=== PATIENT | male | born 1995 | race American Indian/Alaskan Native ===

== ENCOUNTER 2017-12-24 07:47 | Emergency (ER) | payer OTHER ==
[2017-12-24] MEDS ORDERED: ASPIRIN PO ONE (08:02)
[2017-12-24 08:21] LABS: Hematocrit 46.9 % (35.5-45.6); Mean Corpuscular HGB Conc 34 % (32-34); Mean Corpuscular Hemoglobin 28 pg (28-32); Mean Corpuscular Volume 81 fl (84-94); Platelet Count 277 K/mm3 (140-440); Red Blood Count 5.81 M/mm3 (3.65-5.03); Red Cell Distribution Width 14.1 % (13.2-15.2)
[2017-12-24] MEDS ORDERED: LOPRESSOR PO ONE (08:40)
[2017-12-24 08:59] LABS: BUN/Creatinine Ratio 15; Blood Urea Nitrogen 9 mg/dL (9-20); Hemolysis Index 36
[2017-12-24 10:10] VITALS: BP 143/88
[2017-12-24 11:19] LABS: Basophils % (Manual) 0 % (0.0-1.8); Eosinophils % (Manual) 0 % (0.0-4.3); Total Cells Counted 100
[2017-12-24 11:20] LABS: Anisocytosis 1+; Platelet Estimate Consistent w Auto
--- NOTE | 2017-12-24 12:30 | Emergency Department Report ---
HPI - General Chief Complaint: Arrhythmia/Palpitations Time Seen by Provider: 12/24/17 08:40 - HPI HPI: 22-year-old -[place] male comes to the ED complaining of mainly chest pain, 3 out of 10, without radiation, no nausea, no vomiting. Patient does have a history of high blood pressure not on any current medication. Patient also complaining of palpitation, feeling like his heart beating fast after drinking energy drinks. Denies headache, denies focal weakness. Patient denies any alleviating factors for his symptoms. Drinking caffeinated drink is an exacerbating factor. ED Past Medical Hx - Past Medical History Previous Medical History?: No Additional medical history: Heart palpitations - Surgical History Past Surgical History?: No - Social History Smoking Status: Current Every Day Smoker Substance Use Type: Alcohol - Medications Home Medications: Home Medications Medication Instructions Recorded Confirmed Last Taken Type Hydrochlorothiazide 12.5 mg PO AC #30 tablet 12/24/17 Unknown Rx ED Review of Systems ROS: Stated complaint: CHEST PAIN Other details as noted in HPI Comment: All other systems reviewed and negative ENT: denies: ear pain, throat pain Respiratory: denies: cough, orthopnea Cardiovascular: chest pain, palpitations Gastrointestinal: denies: nausea, vomiting Musculoskeletal: denies: back pain Skin: denies: rash, lesions Physical Exam - Physical Exam Vital Signs: Vital Signs 12/24/17 12/24/17 12/24/17 07:58 08:27 08:49 Temperature 98.3 F Pulse Rate 96 H 99 H 88 Respiratory 20 16 Rate Blood Pressure 159/92 162/91 Blood Pressure 162/91 [Left] O2 Sat by Pulse 100 98 Oximetry 12/24/17 12/24/17 09:39 10:10 Temperature Pulse Rate 60 Respiratory 16 16 Rate Blood Pressure Blood Pressure 143/88 [Left] O2 Sat by Pulse 98 Oximetry Physical Exam: - Physical Exam Physical Exam: - General Limitations: No Limitations General appearance: alert, in no apparent distress, obese - Head Head exam: Present: atraumatic, normocephalic - Eye Eye exam: Present: normal appearance - ENT ENT exam: Present: mucous membranes moist - Neck Neck exam: Present: normal inspection - Respiratory Respiratory exam: Present: normal lung sounds bilaterally. Absent: respiratory distress - Cardiovascular Cardiovascular Exam: Present: normal rhythm, tachycardia. Absent: systolic murmur, diastolic murmur, rubs, gallop - GI/Abdominal GI/Abdominal exam: Present: soft, normal bowel sounds - Extremities Exam Extremities exam: Present: normal inspection - Back Exam Back exam: Present: normal inspection - Neurological Exam Neurological exam: Present: alert, oriented X3 - Psychiatric Psychiatric exam: normal affect and mood - Skin Skin exam: Present: warm, dry, intact, normal color. Absent: rash ED Course Vital Signs 12/24/17 12/24/17 12/24/17 07:58 08:27 08:49 Temperature 98.3 F Pulse Rate 96 H 99 H 88 Respiratory 20 16 Rate Blood Pressure 159/92 162/91 Blood Pressure 162/91 [Left] O2 Sat by Pulse 100 98 Oximetry 12/24/17 12/24/17 09:39 10:10 Temperature Pulse Rate 60 Respiratory 16 16 Rate Blood Pressure Blood Pressure 143/88 [Left] O2 Sat by Pulse 98 Oximetry - Reevaluation(s) Reevaluation #1: 12/24/17 12:27 Nino given Lopressor and in ER, palpitations subsided, feels better, wants to go home. ED Medical Decision Making - Lab Data Result diagrams: 12/24/17 08:07 12/24/17 08:07 Critical care attestation.: If time is entered above; I have spent that time in minutes in the direct care of this critically ill patient, excluding procedure time. ED Disposition Clinical Impression: Palpitations Hypertension Qualifiers: Hypertension type: essential hypertension Qualified Code(s): I10 - Essential ( primary) hypertension Disposition: DC-01 TO HOME OR SELFCARE Is pt being admited?: No Does the pt Need Aspirin: No Condition: Stable Instructions: Hypertension (ED) Prescriptions: Hydrochlorothiazide 12.5 mg PO AC #30 tablet Referrals: PRIMARY CARE, [Primary Care Provider] - 3-5 Days
== END 2017-12-24 12:40 | disposition home or self-care (01) ==
LOC: ED 07:47
DX: R00.2 Palpitations (principal); I10 Essential (primary) hypertension; F17.200 Nicotine dependence, unspecified, uncomplicated; Z91.018 Allergy to other foods
CPT/HCPCS: 36415; 80048; 84484; 85007; 85025; 93005; 93010; 99284